=== PATIENT | female | born 1995 | race Two or more races ===

== ENCOUNTER 2021-08-25 18:29 | Inpatient (IN) | payer OTHER ==
[~2021-08-25] VITALS: Ht 157.5 cm; Wt 96.2 kg
[2021-08-25] MEDS ORDERED: CHILDREN'S ASPI81 MG PO (19:10)
[2021-08-25] MEDS ORDERED: PRENATAL TABLE1 EAC1 PO (19:10)
[2021-08-25] MEDS ORDERED: IRON325 MG PO (19:11)
[2021-08-27] MEDS ORDERED: PROFERRIN-FORT1 EACH (08:24)
== END 2021-08-28 10:47 | disposition home or self-care (01) | DRG 833 ==
LOC: OBS/DEL 18:29 → LDR 08-26 12:00 → OBS/DEL 08-26 12:00 → OB/GYN 08-27 07:50
PROVIDERS: ADMIT Obstetrics & Gynecology; ATTEND Obstetrics & Gynecology
PROC: 4A1HXCZ Monitoring of Products of Conception, Cardiac Rate, External Approach (ICD-10-PCS; principal; 2021-08-26)
DX: O46.093 Antepartum hemorrhage with other coagulation defect, third trimester (principal); D69.49 Other primary thrombocytopenia; O99.013 Anemia complicating pregnancy, third trimester; D64.89 Other specified anemias; Z3A.30 30 weeks gestation of pregnancy; Z20.822 Contact with and (suspected) exposure to COVID-19